=== PATIENT | female | born 1995 | race Two or more races ===

== ENCOUNTER 2018-01-10 12:19 | Inpatient (IN) | payer OTHER ==
--- NOTE | 2018-01-10 13:25 | HP ---
CIWA Score - CIWA Score Nausea/Vomitin-Mild Nausea/No Vomiting Muscle Tremors: 4-Moderate,w/Arms Extend Anxiety: 4-Mod. Anxious/Guarded Agitation: 4-Moderately Restless Paroxysmal Sweats: 1-Minimal Palms Moist Orientation: 0-Oriented Tacttile Disturbances: 1-Very Mild Itch/Numbness Auditory Disturbances: 0-None Visual Disturbances: 0-None Headache: 1-Very Mild CIWA-Ar Total Score: 16 Admission ROS BHS - HPI Chief Complaint: alcohol withdrawal sx Allergies/Adverse Reactions: Allergies Allergy/AdvReac Type Severity Reaction Status Date / Time penicillin G Allergy Unknown Verified 01/10/18 13:20 NUTS Allergy Severe Hives Uncoded 01/10/18 13:22 History of Present Illness: 22 years old female with long history of alcohol nicotine dependence has bipolar ii is admitted to detox has anorexia patient went to [facility] for suicidal ideation treated with benzo denies suicidal ideation upon detox admission has chronic thyroiditis no treatment Exam Limitations: No Limitations - Ebola screening Have you traveled outside of the country in the last 21 days: No Have you had contact with anyone from an Ebola affected area: No Have you been sick,other than usual withdrawal symptoms: No Do you have a fever: No - Review of Systems Constitutional: Malaise, Changes in sleep EENT: reports: Blurred Vision (eye glass) Respiratory: reports: No Symptoms reported Cardiac: reports: No Symptoms Reported GI: reports: Nausea, Poor Fluid Intake, Abdominal cramping : reports: No Symptoms Reported Musculoskeletal: reports: No Symptoms Reported Integumentary: reports: No Symptoms Reported Neuro: reports: Tremors Endocrine: reports: No Symptoms Reported Hematology: reports: No Symptoms Reported Psychiatric: reports: Judgement Intact, Orientated x3, Anxious, Depressed Other Systems: Reviewed and Negative Patient History - Patient Medical History Hx Anemia: No Hx Asthma: Yes Hx Chronic Obstructive Pulmonary Disease (COPD): No Hx Cancer: No Hx Cardiac Disorders: No Hx Congestive Heart Failure: No Hx Hypertension: No Hx Hypercholesterolemia: No Hx Pacemaker: No HX Cerebrovascular Accident: No Hx Dementia: No Hx Diabetes: No Hx Gastrointestinal Disorders: No Hx Liver Disease: No Hx Genitourinary Disorders: No Hx Sexually Transmitted Disorders: No Hx Renal Disease (ESRD): No Hx Thyroid Disease: No Hx Human Immunodeficiency Virus (HIV): No Hx Hepatitis C: No Hx Depression: No Hx Suicide Attempt: No Hx Bipolar Disorder: Yes Hx Schizophrenia: No - Patient Surgical History Past Surgical History: No - PPD History Previous Implant?: Yes Documented Results: Negative w/o proof Implanted On Prior R Admission?: No PPD to be Administered?: Yes - Reproductive History Patient is a Female of Child Bearing Age (11 -55 yrs old): Yes Last Menstrual Period: 01/06/18 Patient : No - Smoking Cessation Smoking history: Current every day smoker Have you smoked in the past 12 months: Yes Aproximately how many cigarettes per day: 10 Cigars Per Day: 0 Hx Chewing Tobacco Use: No Initiated information on smoking cessation: Yes 'Breaking Loose' booklet given: 01/10/18 - Substance & Tx. History Hx Alcohol Use: Yes - Substances Abused Cocaine Route: Inhalation Frequency: 3-6 times per week Amount used: $100-200 Age of first use: 15 Date of Last Use: 01/10/18 Alcohol-tequila/vodka/wine Route: Oral Frequency: 3-6 times per week Amount used: 5 pts. Age of first use: 16 Date of Last Use: 01/10/18 Family Disease History - Family Disease History Family Disease History: Heart Disease: Mother, Other: Brother (hyperthyroid) Admission Physical Exam [facility] - Physical General Appearance: Yes: Appropriately Dressed, Mild Distress, Alcohol on Breath , Tremorous, Irritable, Sweating, Anxious HEENTM: Yes: Hearing grossly Normal, Normocephalic, Normal Voice, Other (eye glasses) Respiratory: Yes: Chest Non-Tender, No Respiratory Distress, No Accessory Muscle Use, Wheezing, Expiration Neck: Yes: Supple, Trachea in good position Breast: Yes: Breasts Symetrical, No Discharge Cardiology: Yes: Regular Rate, S1, S2, Irregular Abdominal: Yes: Non Tender, Flat, Increased Bowel Sounds Genitourinary: Yes: Within Normal Limits Back: Yes: Normal Inspection Musculoskeletal: Yes: full range of Motion, Gait Steady Extremities: Yes: Normal Inspection, Normal Range of Motion, Non-Tender, Tremors Neurological: Yes: Fully Oriented, Alert, Motor Strength 5/5, Normal Response, Depressed Affect Integumentary: Yes: Warm Lymphatic: Yes: Within Normal Limits - Diagnostic (1) Alcohol dependence with uncomplicated withdrawal Current Visit: Yes Status: Acute (2) Nicotine dependence Current Visit: Yes Status: Acute Qualifiers: Nicotine product type: cigarettes Substance use status: in withdrawal Qualified Code(s): F17.213 - Nicotine dependence, cigarettes, with withdrawal (3) Asthma Current Visit: Yes Status: Chronic Qualifiers: Asthma severity: mild Asthma persistence: intermittent Asthma complication type: with status asthmaticus Qualified Code(s): J45.22 - Mild intermittent asthma with status asthmaticus (4) Anorexia nervosa Current Visit: Yes Status: Suspected Cleared for Admission S - Detox or Rehab S Level of Care: Medically Managed Detox Regimen/Protocol: Librium
[2018-01-10] MEDS ORDERED: IBUPROFEN 400 MG TABLET (FP) PO PRN (13:29)
[2018-01-10] MEDS ORDERED: guaiFENesin/D-METHORPHAN HB 10 ML UNIT-DOSE CUPS PO PRN (13:29)
[2018-01-10] MEDS ORDERED: MENTHOL/PHENOL 1 EACH UD MM PRN (13:29)
[2018-01-10] MEDS ORDERED: MAGNESIUM CITRATE 300 ML BOTTLE PO PRN (13:29)
[2018-01-10] MEDS ORDERED: P-EPHED 60MG/TRIPROLIDI 2.5MG TABLET PO PRN (13:29)
[2018-01-10] MEDS ORDERED: MAGNESIUM HYDROX 2400MG/30ML ORAL SUSPENSION 30 ML CUP PO PRN (13:29)
[2018-01-10] MEDS ORDERED: LOPERAMIDE HCL 2 MG CAPSULE PO PRN (13:29)
[2018-01-10] MEDS ORDERED: NICOTINE POLACRILEX 2 MG GUM BUC PRN (13:29)
[2018-01-10] MEDS ORDERED: MAG HYDROX/AL HYDROX/SIMETH 30 ML UNIT-DOSE CUP PO PRN (13:29)
[2018-01-10 13:48] VITALS: BMI 27.3
[2018-01-10] MEDS: chlordiazePOXIDE HCL 25 MG CAPSULE PO PRN (15:22)
[2018-01-10] MEDS: NICOTINE 14 MG/24 HOURS TOPICAL PATCH TD SCH (15:26)
--- NOTE | 2018-01-10 15:54 | CONSULT ---
[facility] Psychiatric Consult - Data Date of interview: 01/10/18 Admission source: [facility] Identifying data: Patient is a 22 year old female, engaged, without kids, working as a religion teacher and living with her fiance. This is patient's first admission to [facility]. Pt. admitted to detox for alcohol and cocaine dependence. Substance Abuse History: - Smoking Cessation. Smoking history: Current every day smoker. Have you smoked in the past 12 months: Yes. Aproximately how many cigarettes per day: 10. Cigars Per Day: 0. Hx Chewing Tobacco Use: No. Initiated information on smoking cessation: Yes. 'Breaking Loose' booklet given : 01/10/18. - Substance & Tx. History. Hx Alcohol Use: Yes. - Substances Abused. Cocaine. Route: Inhalation. Frequency: 3-6 times per week. Amount used: $100-200. Age of first use: 15. Date of Last Use: 01/10/18. Alcohol-tequila/vodka/wine. Route: Oral. Frequency: 3-6 times per week. Amount used: 5 pts. Age of first use: 16. Date of Last Use: 01/10/18 Medical History: Asthma Psychiatric History: Patient reports two psychiatric hospitalizations at the age 14 and 18 at the [facility] in [place] for her eating disorder. At this time patient is not malnourished and reports eating well but continues to have episodes of purging with the most recent episode occuring 2 weeks ago. OPD is provided by a private psychiatrist in [place]. Diagnosis of Bipolar disorder and is prescribed lamictal 150mg. Pharmacy claims reviewed. Pt. is compliant with her medication regime. Patient reports h/o cutting which begun last year after her step father committed suicide in November. Patient reports one suicide attempt by taking tylenol PM pills at the age of 13 but states she did it for attention. Pt. denies suicidal/homicidal ideation. Physical/Sexual Abuse/Trauma History: Denies. Mental Status Exam - Mental Status Exam Alert and Oriented to: Time, Place, Person Cognitive Function: Good Patient Appearance: Well Groomed Mood: Hopeful Affect: Mood Congruent Patient Behavior: Appropriate, Cooperative Speech Pattern: Clear, Appropriate Voice Loudness: Normal Thought Process: Intact, Goal Oriented Thought Disorder: Not Present Hallucinations: Denies Suicidal Ideation: Denies Homicidal Ideation: Denies Insight/Judgement: Poor Sleep: Poorly Appetite: Fair Muscle strength/Tone: Normal Gait/Station: Normal Psychiatric Findings - Problem List ([place] 1, 2,3) (1) Bipolar disorder Current Visit: Yes Status: Chronic (2) Alcohol dependence with uncomplicated withdrawal Current Visit: Yes Status: Acute (3) Nicotine dependence Current Visit: Yes Status: Chronic Qualifiers: Nicotine product type: cigarettes Substance use status: in withdrawal Qualified Code(s): F17.213 - Nicotine dependence, cigarettes, with withdrawal (4) Borderline personality disorder Current Visit: No Status: Suspected (5) Eating disorder Current Visit: No Status: Chronic Comment: h/o purging. - Initial Treatment Plan Initial Treatment Plan: Psychoeducation provided. Detoxification in progress. Lamictal 150mg + Ambien 10mg qhs ordered. Pharmacy claims reviewed. Benefits and side effects discussed. Patient made aware of the risk of parasomnia when accepting ambien. Verbal consent given. Will continue to monitor.
[2018-01-10] MEDS: chlordiazePOXIDE HCL 25 MG CAPSULE PO SCH ×2 (17:57→22:30)
[2018-01-10] MEDS ORDERED: lamoTRIgine 100 MG TABLET (FP) ONE (20:01)
[2018-01-10] MEDS ORDERED: lamoTRIgine 25 MG TABLET ONE (20:01)
[2018-01-10] MEDS ORDERED: MELATONIN 5 MG TABLETS PO PRN (22:00)
[2018-01-10] MEDS ORDERED: lamoTRIgine 100 MG TABLET (FP) PO SCH (22:00)
[2018-01-10] MEDS: LAMOTRIGINE 100 MG, LAMOTRIGINE 50 MG PO SCH (22:29)
[2018-01-10] MEDS: THIAMINE HCL 100 MG TABLET (FP) PO SCH (22:30)
[2018-01-10] MEDS: ZOLPIDEM TARTRATE 10 MG TABLET (PARK CARE ONLY) PO PRN (22:31)
[2018-01-10] MEDS: ALBUTEROL SO4 18 GM HFA INHALER IH PRN (23:06)
[2018-01-10 23:35] LABS: URINE APPEARANCE SLCLOUDY; URINE BILIRUBIN NEGATIVE (<2.0 mg/dL); URINE COLOR YELLOW; URINE GLUCOSE (UA) NEGATIVE (NEGATIVE); URINE KETONE NEGATIVE (NEGATIVE); URINE LEUK ESTERASE NEGATIVE (NEGATIVE); URINE NITRITE NEGATIVE (NEGATIVE); URINE PROTEIN NEGATIVE (NEGATIVE); URINE UROBILINOGEN NEGATIVE mg/dL (0.2-1.0)
[2018-01-11] MEDS: chlordiazePOXIDE HCL 25 MG CAPSULE PO SCH ×4 (05:43→22:20)
--- NOTE | 2018-01-11 09:39 | EKG ---
Test Reason : Blood Pressure : / mmHG Vent. Rate : 078 BPM Atrial Rate : 078 BPM P-R Int : 178 ms QRS Dur : 076 ms QT Int : 388 ms P-R-T Axes : 029 058 052 degrees QTc Int : 442 ms NORMAL SINUS RHYTHM WITH SINUS ARRHYTHMIA NORMAL ECG NO PREVIOUS ECGS AVAILABLE Confirmed by HUEY SAUCEDA, SCOTT ([id number]) on 01/11/2018 9:38:57 AM Referred By: Confirmed By:SCOTT ARZATE MD
--- NOTE | 2018-01-11 09:42 | PN ---
S CIWA - CIWA Score Nausea/Vomitin-Mild Nausea/No Vomiting Muscle Tremors: 4-Moderate,w/Arms Extend Anxiety: 4-Mod. Anxious/Guarded Agitation: 4-Moderately Restless Paroxysmal Sweats: 1-Minimal Palms Moist Orientation: 0-Oriented Tacttile Disturbances: 1-Very Mild Itch/Numbness Auditory Disturbances: 0-None Visual Disturbances: 0-None Headache: 0-None Present CIWA-Ar Total Score: 15 BHS Progress Note (SOAP) Subjective: I NEED TO DRINK A LOT OF WATER SWEAT TREMOR ANXIETY RESTLESSNESS TROUBLE SLEEP AT NIGHT Objective: 01/11/18 09:43 Vital Signs Temperature 97.3 F L 01/11/18 09:36 Pulse Rate 65 01/11/18 09:36 Respiratory Rate 16 01/11/18 09:36 Blood Pressure 116/69 01/11/18 09:36 O2 Sat by Pulse Oximetry (%) Laboratory Last Values Urine Color Yellow 01/10/18 15:53 Urine Appearance Slcloudy 01/10/18 15:53 Urine pH 6.0 (5.0-8.0) 01/10/18 15:53 Ur Specific [place] 1.024 (1.001-1.035) 01/10/18 15:53 Urine Protein Negative (NEGATIVE) 01/10/18 15:53 Urine Glucose (UA) Negative (NEGATIVE) 01/10/18 15:53 Urine Ketones Negative (NEGATIVE) 01/10/18 15:53 Urine Blood Negative (NEGATIVE) 01/10/18 15:53 Urine Nitrite Negative (NEGATIVE) 01/10/18 15:53 Urine Bilirubin Negative (<2.0 mg/dL) 01/10/18 15:53 Urine Urobilinogen Negative mg/dL (0.2-1.0) 01/10/18 15:53 Ur Leukocyte Esterase Negative (NEGATIVE) 01/10/18 15:53 LAB NOTED Assessment: 01/11/18 09:43 WITHDRAWAL SX FLUID VOLUME DEFICIT Plan: CONTINUE DETOX INCREASE ORAL FLUID
[2018-01-11 09:59] LABS: CHLORIDE 103 mmol/L (98-107); SODIUM 139 mmol/L (136-145)
[2018-01-11 10:17] LABS: HEMATOCRIT 38.8 % (32.4-45.2); HEMOGLOBIN 13.1 GM/dL (10.7-15.3); MCHC 33.7 g/dl (32.0-36.0); MEAN CELL VOLUME 91.9 fl (80-96); MEAN PLT VOLUME 7.9 fl (7.5-11.1); PLATELET COUNT 409 K/MM3 (134-434); RBC 4.22 M/mm3 (3.60-5.2); RDW 13.9 % (11.6-15.6); WHITE BLOOD COUNT 9.5 K/mm3 (4.0-10.0)
[2018-01-11] MEDS: ASPIRIN 81 MG CHEWABLE TABLETS PO SCH (10:43)
[2018-01-11] MEDS: PRENATAL VITAMINS W/ FOLIC ACID TABLET (FP) PO SCH (10:43)
[2018-01-11] MEDS: NICOTINE 14 MG/24 HOURS TOPICAL PATCH TD SCH (10:43)
[2018-01-11 11:05] LABS: ALBUMIN 4.1 g/dl (3.4-5.0); ALK PHOS 82 U/L (45-117); ANION GAP 9 (8-16); BILIRUBIN,TOTAL 0.4 mg/dL (0.2-1.0); BLOOD UREA NITROGEN 11 mg/dL (7-18); CALCIUM 9.4 mg/dL (8.5-10.1); CO2 27 mmol/L (21-32); CREATININE 0.7 mg/dL (0.55-1.02); GLUCOSE,RANDOM 71 mg/dL (74-106); SGOT/AST 14 U/L (15-37); SGPT/ALT 26 U/L (12-78); TOT PROT 7.8 g/dl (6.4-8.2)
[2018-01-11] MEDS ORDERED: lamoTRIgine 100 MG TABLET (FP) ONE (20:07)
[2018-01-11] MEDS ORDERED: lamoTRIgine 25 MG TABLET ONE (20:07)
[2018-01-11] MEDS: chlordiazePOXIDE HCL 25 MG CAPSULE PO PRN (20:16)
[2018-01-11] MEDS: THIAMINE HCL 100 MG TABLET (FP) PO SCH (22:20)
[2018-01-11] MEDS: ALBUTEROL SO4 18 GM HFA INHALER IH PRN (22:20)
[2018-01-11] MEDS: LAMOTRIGINE 100 MG, LAMOTRIGINE 50 MG PO SCH (22:20)
[2018-01-11] MEDS: ZOLPIDEM TARTRATE 10 MG TABLET (PARK CARE ONLY) PO PRN (22:21)
[2018-01-12] MEDS: chlordiazePOXIDE HCL 25 MG CAPSULE PO SCH ×2 (06:14→11:01)
[2018-01-12] MEDS: ASPIRIN 81 MG CHEWABLE TABLETS PO SCH (11:00)
[2018-01-12] MEDS: PRENATAL VITAMINS W/ FOLIC ACID TABLET (FP) PO SCH (11:00)
[2018-01-12] MEDS: NICOTINE 14 MG/24 HOURS TOPICAL PATCH TD SCH (11:01)
--- NOTE | 2018-01-12 11:24 | PN ---
[facility] CIWA - CIWA Score Nausea/Vomitin-Mild Nausea/No Vomiting Muscle Tremors: 4-Moderate,w/Arms Extend Anxiety: 3 Agitation: 3 Paroxysmal Sweats: 1-Minimal Palms Moist Orientation: 0-Oriented Tacttile Disturbances: 1-Very Mild Itch/Numbness Auditory Disturbances: 0-None Visual Disturbances: 0-None Headache: 0-None Present CIWA-Ar Total Score: 13 BHS Progress Note (SOAP) Subjective: tremor sweat anxiety restlessness Objective: 01/12/18 11:23 Vital Signs Temperature 97.5 F L 01/12/18 09:19 Pulse Rate 74 01/12/18 09:19 Respiratory Rate 18 01/12/18 09:19 Blood Pressure 117/71 01/12/18 09:19 O2 Sat by Pulse Oximetry (%) Laboratory Last Values WBC 9.5 K/mm3 (4.0-10.0) 01/11/18 05:55 RBC 4.22 M/mm3 (3.60-5.2) 01/11/18 05:55 Hgb 13.1 GM/dL (10.7-15.3) 01/11/18 05:55 Hct 38.8 % (32.4-45.2) 01/11/18 05:55 MCV 91.9 fl (80-96) 01/11/18 05:55 MCH 31.0 pg (25.7-33.7) 01/11/18 05:55 MCHC 33.7 g/dl (32.0-36.0) 01/11/18 05:55 RDW 13.9 % (11.6-15.6) 01/11/18 05:55 Plt Count 409 K/MM3 (134-434) 01/11/18 05:55 MPV 7.9 fl (7.5-11.1) 01/11/18 05:55 Sodium 139 mmol/L (136-145) 01/11/18 05:55 Potassium 4.0 mmol/L (3.5-5.1) 01/11/18 05:55 Chloride 103 mmol/L (98-107) 01/11/18 05:55 Carbon Dioxide 27 mmol/L (21-32) 01/11/18 05:55 Anion Gap 9 (8-16) 01/11/18 05:55 BUN 11 mg/dL (7-18) 01/11/18 05:55 Creatinine 0.7 mg/dL (0.55-1.02) 01/11/18 05:55 Creat Clearance w eGFR > 60 (>60) 01/11/18 05:55 Random Glucose 71 mg/dL (74-106) L 01/11/18 05:55 Calcium 9.4 mg/dL (8.5-10.1) 01/11/18 05:55 Total Bilirubin 0.4 mg/dL (0.2-1.0) 01/11/18 05:55 AST 14 U/L (15-37) L 01/11/18 05:55 ALT 26 U/L (12-78) 01/11/18 05:55 Alkaline Phosphatase 82 U/L (45-117) 01/11/18 05:55 Total Protein 7.8 g/dl (6.4-8.2) 01/11/18 05:55 Albumin 4.1 g/dl (3.4-5.0) 01/11/18 05:55 Urine Color Yellow 01/10/18 15:53 Urine Appearance Slcloudy 01/10/18 15:53 Urine pH 6.0 (5.0-8.0) 01/10/18 15:53 Ur Specific [place] 1.024 (1.001-1.035) 01/10/18 15:53 Urine Protein Negative (NEGATIVE) 01/10/18 15:53 Urine Glucose (UA) Negative (NEGATIVE) 01/10/18 15:53 Urine Ketones Negative (NEGATIVE) 01/10/18 15:53 Urine Blood Negative (NEGATIVE) 01/10/18 15:53 Urine Nitrite Negative (NEGATIVE) 01/10/18 15:53 Urine Bilirubin Negative (<2.0 mg/dL) 01/10/18 15:53 Urine Urobilinogen Negative mg/dL (0.2-1.0) 01/10/18 15:53 Ur Leukocyte Esterase Negative (NEGATIVE) 01/10/18 15:53 RPR Titer Nonreactive (NONREACTIVE) 01/11/18 05:55 HIV 1&2 Antibody Screen Negative 01/11/18 08:15 HIV P24 Antigen Negative 01/11/18 08:15 lab noted Assessment: 01/12/18 11:23 withdrawal sx Plan: continue detox
--- NOTE | 2018-01-12 12:08 | PN ---
Psychiatric Progress Note Vital Signs: Vital Signs Period Temp Pulse Resp BP Sys/Hector Pulse Ox Last 24 Hr 97.5 F-99.5 F 70-78 16-18 94-128/52-71 Date of Session: 01/12/18 Chief Complaint:: ANXIETY AND AGITATION HPI: Patient reports anxiety during day time and at night when she wakes uo. Patient asking for medications aid. Current Medications: Active Medications Generic Name Dose Route Start Last Admin Trade Name Freq PRN Reason Stop Dose Admin Acetaminophen 650 mg 01/10/18 13:29 Tylenol - PO Q4H PRN FEVER Al Hydroxide/Mg Hydroxide 30 ml 01/10/18 13:29 Mylanta Oral Suspension - PO Q6H PRN DYSPEPSIA Albuterol Sulfate 2 puff 01/10/18 13:30 01/11/18 22:20 Ventolin Hfa Inhaler - IH 2 puff Q4H PRN Administration ASTHMA Aspirin 81 mg 01/11/18 10:00 01/12/18 11:00 Asa - PO 81 mg DAILY REX Administration Chlordiazepoxide HCl 15 mg 01/12/18 17:00 Librium - PO 01/13/18 11:01 [id number] REX Chlordiazepoxide HCl 25 mg 01/10/18 13:29 01/11/18 20:16 Librium - PO 01/13/18 13:28 25 mg Q4H PRN Administration WITHDRAWAL(CONT SUBST) Chlordiazepoxide HCl 10 mg 01/13/18 17:00 Librium - PO 01/14/18 11:01 [id number] REX Eucalyptus/Menthol/Phenol/Sorbitol 1 each 01/10/18 13:29 Cepastat Lozenge - MM Q4H PRN SORE THROAT Guaifenesin 10 ml 01/10/18 13:29 Robitussin Dm - PO Q6H PRN COUGH Lamotrigine 100 mg/ 150 mg 01/10/18 22:00 01/11/18 22:20 Lamotrigine 50 mg PO 150 mg HS REX Administration Loperamide HCl 4 mg 01/10/18 13:29 Imodium - PO Q6H PRN DIARRHEA Magnesium Citrate 300 ml 01/10/18 13:29 Citroma - PO Q48H PRN CONSTIPATION Magnesium Hydroxide 30 ml 01/10/18 13:29 Milk Of Magnesia - PO DAILY PRN CONSTIPATION Nicotine 14 mg 01/10/18 14:45 01/12/18 11:01 Nicoderm Patch - TD Not Given DAILY REX Nicotine Polacrilex 2 mg 01/10/18 13:29 Nicorette Gum - BUC Q2H PRN NICOTINE REPLACEMENT RX Multivit/Folic Acid/Iron 1 tab 01/11/18 10:00 01/12/18 11:00 Vitamins (Sjr) - PO 1 tab DAILY REX Administration Pseudoephedrine/Triprolidine 1 combo 01/10/18 13:29 Actifed - PO TID PRN NASAL CONGESTION Thiamine HCl 100 mg 01/10/18 22:00 01/11/18 22:20 Vitamin B1 - PO 100 mg HS REX Administration Zolpidem Tartrate 10 mg 01/10/18 22:00 01/11/18 22:21 Ambien - PO 01/13/18 21:59 10 mg HS PRN Administration INSOMNIA Medication(s) Change(s): Vistaril 50mg po q4 for anxiety Mental Status Exam - Mental Status Exam Alert and Oriented to: Person Cognitive Function: Fair Patient Appearance: Unkempt Mood: Anxious Affect: Mood Congruent Patient Behavior: Cooperative Speech Pattern: Appropriate Voice Loudness: Normal Thought Process: Goal Oriented Thought Disorder: Being Controlled Hallucinations: Denies Suicidal Ideation: Denies Homicidal Ideation: Denies Insight/Judgement: Fair Sleep: Difficulty falling asleep Appetite: Fair Muscle strength/Tone: Normal Gait/Station: Normal Additional Comments: Vistaril 50mg po prn q4 for anxiety Psychiatric Treatment Plan - Problem List (1) Alcohol dependence with uncomplicated withdrawal Current Visit: Yes (2) Nicotine dependence Current Visit: Yes Qualifiers: Nicotine product type: cigarettes Substance use status: in withdrawal Qualified Code(s): F17.213 - Nicotine dependence, cigarettes, with withdrawal (3) Bipolar disorder Current Visit: Yes (4) Anorexia nervosa Current Visit: Yes (5) Eating disorder Current Visit: No Comment: h/o purging. (6) Borderline personality disorder Current Visit: No Initial treatment plan: Vistaril 50mg po prn q4 for anxiety
[2018-01-12] MEDS: ALBUTEROL SO4 18 GM HFA INHALER IH PRN (16:56)
[2018-01-12] MEDS: chlordiazePOXIDE 5 MG CAPSULE PO SCH ×2 (17:47→22:22)
[2018-01-12] MEDS: hydrOXYzine PAMOATE 50 MG CAPSULE (FP) PO PRN (18:11)
[2018-01-12] MEDS ORDERED: lamoTRIgine 25 MG TABLET ONE (21:20)
[2018-01-12] MEDS ORDERED: lamoTRIgine 100 MG TABLET (FP) ONE (21:20)
[2018-01-12] MEDS: LAMOTRIGINE 100 MG, LAMOTRIGINE 50 MG PO SCH (22:22)
[2018-01-12] MEDS: ZOLPIDEM TARTRATE 10 MG TABLET (PARK CARE ONLY) PO PRN (22:23)
[2018-01-12] MEDS: THIAMINE HCL 100 MG TABLET (FP) PO SCH (22:23)
[2018-01-13] MEDS: chlordiazePOXIDE 5 MG CAPSULE PO SCH ×2 (06:08→10:33)
[2018-01-13] MEDS: ACETAMINOPHEN 325 MG TABLET (FP) PO PRN ×4 (06:11→22:52)
[2018-01-13] MEDS: ASPIRIN 81 MG CHEWABLE TABLETS PO SCH (10:33)
[2018-01-13] MEDS: PRENATAL VITAMINS W/ FOLIC ACID TABLET (FP) PO SCH (10:33)
[2018-01-13] MEDS: NICOTINE 14 MG/24 HOURS TOPICAL PATCH TD SCH (10:33)
[2018-01-13] MEDS: hydrOXYzine PAMOATE 50 MG CAPSULE (FP) PO PRN (12:15)
--- NOTE | 2018-01-13 13:37 | PN ---
BHS Progress Note (SOAP) Subjective: ANXIETY,SWEATS,AGITATIONS AND RESTLESSNESS.WANTS TO SEE THE PSYCH MD TODAY. Objective: 01/13/18 13:35 Vital Signs 01/13/18 01/13/18 07:23 10:08 Temperature 98.4 F 97.9 F Pulse Rate 74 68 Respiratory 18 16 Rate Blood Pressure 107/76 98/58 Laboratory Tests 01/10/18 01/10/18 01/11/18 14:00 15:53 05:55 WBC 9.5 RBC 4.22 Hgb 13.1 Hct 38.8 MCV 91.9 MCH 31.0 MCHC 33.7 RDW 13.9 Plt Count 409 MPV 7.9 Sodium Potassium Chloride Carbon Dioxide Anion Gap BUN Creatinine Creat Clearance w eGFR Random Glucose Calcium Total Bilirubin AST ALT Alkaline Phosphatase Total Protein Albumin Urine Color Yellow Urine Appearance Slcloudy Urine pH 6.0 Ur Specific [place] 1.024 Urine Protein Negative Urine Glucose (UA) Negative Urine Ketones Negative Urine Blood Negative Urine Nitrite Negative Urine Bilirubin Negative Urine Urobilinogen Negative Ur Leukocyte Esterase Negative RPR Titer Hep C Ab Diagnostic TNP HIV 1&2 Antibody Screen HIV P24 Antigen 01/11/18 01/11/18 01/11/18 05:55 05:55 08:15 WBC RBC Hgb Hct MCV MCH MCHC RDW Plt Count MPV Sodium 139 Potassium 4.0 Chloride 103 Carbon Dioxide 27 Anion Gap 9 BUN 11 Creatinine 0.7 Creat Clearance w eGFR > 60 Random Glucose 71 L Calcium 9.4 Total Bilirubin 0.4 AST 14 L ALT 26 Alkaline Phosphatase 82 Total Protein 7.8 Albumin 4.1 Urine Color Urine Appearance Urine pH Ur Specific [place] Urine Protein Urine Glucose (UA) Urine Ketones Urine Blood Urine Nitrite Urine Bilirubin Urine Urobilinogen Ur Leukocyte Esterase RPR Titer Nonreactive Hep C Ab Diagnostic HIV 1&2 Antibody Screen Negative HIV P24 Antigen Negative Assessment: 01/13/18 13:35 WITHDRAWAL SX Plan: CONTINUE DETOX F/U UP WITH PSYCH TODAY.
[2018-01-13] MEDS: chlordiazePOXIDE HCL 10 MG CAPSULE PO SCH ×2 (17:27→22:32)
--- NOTE | 2018-01-13 17:40 | PN ---
Psychiatric Progress Note Vital Signs: Vital Signs Period Temp Pulse Resp BP Sys/Hector Pulse Ox Last 24 Hr 97.9 F-99.3 F 68-107 16-18 98-120/54-86 Date of Session: 01/13/18 Chief Complaint:: BHS HPI: Pt. admitted to [facility] detox for alcohol and cocaine dependence. ROS: Unremarkable Current Medications: Active Medications Generic Name Dose Route Start Last Admin Trade Name Freq PRN Reason Stop Dose Admin Acetaminophen 650 mg 01/10/18 13:29 01/13/18 10:35 Tylenol - PO 650 mg Q4H PRN Administration FEVER Al Hydroxide/Mg Hydroxide 30 ml 01/10/18 13:29 Mylanta Oral Suspension - PO Q6H PRN DYSPEPSIA Albuterol Sulfate 2 puff 01/10/18 13:30 01/12/18 16:56 Ventolin Hfa Inhaler - IH 2 puff Q4H PRN Administration ASTHMA Aspirin 81 mg 01/11/18 10:00 01/13/18 10:33 Asa - PO 81 mg DAILY REX Administration Chlordiazepoxide HCl 10 mg 01/13/18 17:00 01/13/18 17:27 Librium - PO 01/14/18 11:01 10 mg [id number] REX Administration Eucalyptus/Menthol/Phenol/Sorbitol 1 each 01/10/18 13:29 Cepastat Lozenge - MM Q4H PRN SORE THROAT Gabapentin 200 mg 01/13/18 17:45 Neurontin - PO 01/13/18 17:46 ONCE ONE Guaifenesin 10 ml 01/10/18 13:29 Robitussin Dm - PO Q6H PRN COUGH Hydroxyzine Pamoate 50 mg 01/12/18 12:05 01/13/18 12:15 Vistaril - PO 50 mg Q4H PRN Administration FOR ITCHING Lamotrigine 100 mg/ 150 mg 01/10/18 22:00 01/12/18 22:22 Lamotrigine 50 mg PO 150 mg HS REX Administration Loperamide HCl 4 mg 01/10/18 13:29 Imodium - PO Q6H PRN DIARRHEA Magnesium Citrate 300 ml 01/10/18 13:29 Citroma - PO Q48H PRN CONSTIPATION Magnesium Hydroxide 30 ml 01/10/18 13:29 Milk Of Magnesia - PO DAILY PRN CONSTIPATION Nicotine 14 mg 01/10/18 14:45 01/13/18 10:33 Nicoderm Patch - TD Not Given DAILY REX Nicotine Polacrilex 2 mg 01/10/18 13:29 Nicorette Gum - BUC Q2H PRN NICOTINE REPLACEMENT RX Multivit/Folic Acid/Iron 1 tab 01/11/18 10:00 01/13/18 10:33 Vitamins (Sjr) - PO 1 tab DAILY REX Administration Pseudoephedrine/Triprolidine 1 combo 01/10/18 13:29 Actifed - PO TID PRN NASAL CONGESTION Thiamine HCl 100 mg 01/10/18 22:00 01/12/18 22:23 Vitamin B1 - PO 100 mg HS REX Administration Zolpidem Tartrate 10 mg 01/10/18 22:00 01/12/18 22:23 Ambien - PO 01/13/18 21:59 10 mg HS PRN Administration INSOMNIA Medication(s) Change(s): Yes. Will order one time dose of gabapentin 200mg Current Side Effect: No Lab tests ordered: No Lab tests reviewed: Yes Provider note:: Family Practitioner met with patient for psychiatric reconsultation. Dr. Salguero's note read and appreciated. Patient reports increase anxiety which has not improved with the vistaril 50mg q4h prn that was ordered yesterday. Patient reports favorable effect from taking gabapentin and is requesting gabapentin for anxiety. One time dose of gabapentin 200mg to be ordered. Patient scheduled for discharge tomorrow morning. Psychoeducation provided. Pt. encouraged to utilize her coping mechanisms. Pt. satisifed and receptive to feedback. Total face to face time:: 25 Mental Status Exam - Mental Status Exam Alert and Oriented to: Time, Place, Person Cognitive Function: Good Patient Appearance: Well Groomed Mood: Anxious Affect: Appropriate Patient Behavior: Appropriate Speech Pattern: Pressured Voice Loudness: Normal Thought Process: Intact, Goal Oriented Thought Disorder: Not Present Hallucinations: Denies Suicidal Ideation: Denies Homicidal Ideation: Denies Insight/Judgement: Poor Sleep: Fair Appetite: Good Muscle strength/Tone: Normal Gait/Station: Normal Psychiatric Treatment Plan - Problem List (1) Bipolar disorder Current Visit: Yes (2) Alcohol dependence with uncomplicated withdrawal Current Visit: Yes (3) Nicotine dependence Current Visit: Yes Qualifiers: Nicotine product type: cigarettes Substance use status: in withdrawal Qualified Code(s): F17.213 - Nicotine dependence, cigarettes, with withdrawal (4) Borderline personality disorder Current Visit: No (5) Eating disorder Current Visit: Yes Comment: h/o purging.
[2018-01-13] MEDS ORDERED: GABAPENTIN 100 MG CAPSULE (FP) PO ONE (17:45)
[2018-01-13] MEDS ORDERED: lamoTRIgine 25 MG TABLET ONE (21:50)
[2018-01-13] MEDS ORDERED: lamoTRIgine 100 MG TABLET (FP) ONE (21:51)
[2018-01-13] MEDS: LAMOTRIGINE 100 MG, LAMOTRIGINE 50 MG PO SCH (22:32)
[2018-01-13] MEDS: THIAMINE HCL 100 MG TABLET (FP) PO SCH (22:32)
[2018-01-13] MEDS: ZOLPIDEM TARTRATE 10 MG TABLET (PARK CARE ONLY) PO PRN (22:34)
[2018-01-13 22:42] VITALS: PULSE 65
[2018-01-14] MEDS: hydrOXYzine PAMOATE 50 MG CAPSULE (FP) PO PRN (00:25)
[2018-01-14] MEDS: chlordiazePOXIDE HCL 10 MG CAPSULE PO SCH (05:48)
[2018-01-14 06:37] VITALS: BP 115/65; TEMP 97.7
[2018-01-14] MEDS: PRENATAL VITAMINS W/ FOLIC ACID TABLET (FP) PO SCH (09:35)
[2018-01-14] MEDS: ASPIRIN 81 MG CHEWABLE TABLETS PO SCH (09:35)
[2018-01-14] MEDS: NICOTINE 14 MG/24 HOURS TOPICAL PATCH TD SCH (09:37)
--- NOTE | 2018-01-14 09:47 | PN ---
S Progress Note (SOAP) Subjective: Anxious No acute distress noted Objective: 01/14/18 09:46 A & O x 3 Anxious Vital Signs Temperature 97.7 F 01/14/18 06:00 Pulse Rate 65 01/14/18 06:00 Respiratory Rate 18 01/14/18 06:00 Blood Pressure 115/65 01/14/18 06:00 O2 Sat by Pulse Oximetry (%) Assessment: 01/14/18 09:46 detox safely concluded Plan: for dischargee
--- NOTE | 2018-01-14 09:55 | DS ---
[facility] Detox Discharge Summary Admission Date: 01/10/18 Discharge Date: 01/14/18 - History Present History: Alcohol Dependence, Cannabis Dependence, Cocaine Dependence, Opioid Dependence, Sedative Dependence, Pcp Dependence, MMTP, K 2 Additional Comments: pt for discharge States she will do aftercare services by going to AA meetings. Will f/u with her PMD Dr Imani Beaver of [facility] and [address] [place] [address] Does not need any medical meds refill Pertinent Past History: psychiatric - Physical Exam Results Vital Signs: Vital Signs Temperature 97.7 F 01/14/18 06:00 Pulse Rate 65 01/14/18 06:00 Respiratory Rate 18 01/14/18 06:00 Blood Pressure 115/65 01/14/18 06:00 O2 Sat by Pulse Oximetry (%) Pertinent Admission Physical Exam Findings: withdrawal sx - Treatment Hospital Course: Detox Protocol Followed, Detoxed Safely, Responded well, Discharged Condition Good Patient has Accepted a Rehab Referral to: Out patient AA meetings - Medication Discharge Medications: Ambulatory Orders Albuterol Sulfate Inhaler - [Ventolin Hfa Inhaler -] 2 inh PO Q4H PRN 01/10/18 Lamotrigine [Lamictal -] 150 mg PO HS 01/10/18 - AMA Did Patient Leave Against Medical Advice: No
== END 2018-01-14 09:45 | disposition home or self-care (01) | DRG 775 ==
LOC: YASAS 12:19 → Y6N 14:08
PROVIDERS: ADMIT Surgery; ATTEND Surgery
PROC: HZ2ZZZZ Detoxification Services for Substance Abuse Treatment (ICD-10-PCS; principal; 2018-01-10)
DX: F10.230 Alcohol dependence with withdrawal, uncomplicated (principal); F17.213 Nicotine dependence, cigarettes, with withdrawal; F31.9 Bipolar disorder, unspecified; F60.3 Borderline personality disorder; F50.02 Anorexia nervosa, binge eating/purging type; F50.9 Eating disorder, unspecified; J45.22 Mild intermittent asthma with status asthmaticus; E86.9 Volume depletion, unspecified; Z88.0 Allergy status to penicillin; Z91.018 Allergy to other foods
CPT/HCPCS: 36415; 80053; 81003; 85027; 86593; 87389; 93005; 93010